=== PATIENT | female | born 1980 | race Caucasian/White ===

== ENCOUNTER → 2018-03-04 09:02 | Outpatient (CLI) | payer OTHER, SELFPAY | LOC: PSN 09:04 | PROVIDERS: Family Provider Internal Medicine; PCP Internal Medicine; Visit Provider Internal Medicine | DX: R00.2 Palpitations (principal) | CPT/HCPCS: 93225; 93226 ==

== ENCOUNTER 2018-11-04 05:36 | Day surgery (SDC) | payer OTHER, SELFPAY ==
[2018-10-30 17:32] LABS: Partial Thromboplast Time 29.8 Seconds (24.1-36.2); Prothrombin Time (Protime)PT. 12.6 SECONDS (11.7-14.9)
[2018-10-30 17:40] LABS: Hematocrit 40.5 % (37-47); Hemoglobin 13.9 g/dl (12.0-15.0); Mean Corp Hgb Conc 34.3 g/gl (32-36); Mean Corpuscular Volume 90.2 fL (81-99); Mean Platelet Vol. 10.2 fl (6.2-12.0); Platelet Count 330 K/mm3 (150-450); RBC Distribution Width CV 12.1 % (11.6-14.6); RBC Distribution Width SD 39.2 fl (35.1-43.9); Red Blood Count 4.49 M/mm3 (4.2-5.4); White Blood Count 7.8 K/mm3 (4.4-11.0)
[2018-10-30 17:43] LABS: Scan Indicated on CBC? Y/N NO
[2018-10-30 17:59] LABS: Creatinine, Serum 0.67 mg/dL (0.55-1.02); EST Glomerular Filtration Rate 104 mL/min (>60); Est Glom Filt Rate - Afr Amer 125 mL/min (>60)
--- NOTE | 2018-10-31 10:25 | HP.PCM_ITS ---
History and Physical Date of Admission: 11/04/18 Surgical History and Physical Trista Ring, a 38 year old female 4 1 2 0 5, presents for Robotic Assisted Vaginal Hysterectomy/ BS/ USO on November 04, 2018 at 7:30. -- PCP Bleeding; Pelvic Pain after Ablation -- Irregular Spotting Hx of Ablation which began Ablation 2013 or 2014. Trista claims it started suddenly and has been present several months. It occurs intermittantly. It is located in the lower abdomen. Trista characterizes the quality aching, irregular spotting. Trista characterizes the quality bright red bleeding. Severity is moderate and very concerned. Associated signs and symptoms are dyspareunia, bleeding after IC. Additional comments are: U/S shows no fibroids; suggestive of adenomyosis. MEDICATIONS HISTORY: Patient is also takin. No Meds ALLERGIES: No Known Allergies Infections - Chicken pox Illnesses - no serious past illnesses Accidents - None Hospitalizations - see surgery Review of Systems: GENERAL - Denies fever, or chills SKIN - Denies skin changes EYES - Denies visual changes EARS - Denies difficulty hearing NOSE - Denies nasal congestion or bleeding MOUTH - Denies sore throat or difficulty swallowing NECK - Denies pain or swelling RESPIRATORY - Denies shortness of breath or wheezing CARDIOVASCULAR - Denies palpitations or chest pain GASTROINTESTINAL - Denies nausea, vomiting, diarrhea, constipation GENITOURINARY - Denies dysuria, frequency of urination, incontinence of urine MUSCULOSKELETAL - Denies joint or muscle pain NEUROLOGICAL - Denies localized numbness or weakness PSYCHIATRIC - Denies depression or anxiety ENDOCRINE - Denies heat or cold intolerance, weight loss or gain HEMATO-IMMUNOLOGIC - Denies excesive bleeding with cuts SOCIAL HISTORY: Alcohol Use - socially Smoking - Never Diet - no special diet Lifestyle - moderate stress lifestyle and Exercise - active Seat Belt Use - always Employer - [employer] 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 1996 [place] Teeth Removed ; Dr. Lomeli - 2. D and C, 2009 ; - 3. 05/29/2012 ; - 4. 2014 Ablation ; Dr. Vazquez - PHYSICAL EXAM BP- 122/64 Sitting, Right arm, regular cuff Weight- 146 lbs Height- 64.5 inch BMI: 24.73 CONSTITUTIONAL - NAD, well nourished, and well developed SKIN - No rash, lesions, or ulcers HEENT - Normocephalic, PERRLA, EOMI NECK - No nodes, no nuchal rigidity and thyroid normal size and texture LYMPH NODES - Palpation of lymph nodes in neck and groins within normal limits LUNGS - CTA x2 without wheezes, crackles or rales CARDIAC - Regular rate and rhythm without rubs, murmurs, or gallops ABDOMEN - Without hepatosplenomegaly, distention, masses, rebound, or guarding; normal bowel sounds; no hernias EXTREMITIES - No edema or calf tenderness NEUROLOGICAL - Cranial nerves II-XII grossly intact PSYCHIATRIC - A and O to time, place, person, mood and affect External Genitial Vagina - non-tender without lesions Urethra/Urethral Meatus - non-tender Bladder - non-tender Vagina - vaginal chaudhary are pink and moist without loss of rugae and no evidence of atropy Cervix - without cervical motion tenderness and has normal size and features without evident lesions and friable Uterus - enlarged uterus 8 wks, wt 125-150 g, boggy and Cervix high in vagina which would make [facility] best option for removal of uterus if necessary Adnexa - clear without massess or tenderness and some tenderness over left adnexa ASSESSMENT/PLAN: 1. Abnormal Uterine Bleeding, Unspec and Postcoital Bleeding Pelvic pain and bleeding s/p ablation. Discussed options for treatment including expectant management, OCPs, or RAVH/BS/USO. Desires proceeding with [facility] surgery. Discussed RBAs.
[2018-11-04] VITALS (17 sets, daily range): BP systolic 84–102; BP diastolic 43–63; PULSE 76–112; RESP 12–18; TEMP 36.2–37.8; O2SAT 94–100; BMI 25.2
--- NOTE | 2018-11-04 | HYST_PTH ---
PATIENT: TABITHA BROOKS LOC[place] [facility] [place][id number] AGE/SX: 38/F ROOM: RE11/04/[address]: Dr. Los Quiles MD : 1980 BED: DIS: 11/05/2018 SPEC #: [id number] RECD: 11/04/18 13:27 STATUS: GLO FIONA #: [id number] BULMARO: 11/04/18 00:[address]: Los Quiles DEPT: SURGICAL PATHOLOGY RECD BY: Tyson Otero ENTERED: 11/04/18 13:27 SP TYPE: HYSTERECT OTHR DR: Dr. Sapna Daigle DO Tissues: Uterus, NOS Procedures: Surgery Specimen Level V HEADER OPERATION: Laparoscopic robotic assisted vaginal hysterectomy, bilateral salpingectomy PRE-OP DIAGNOSIS: Abnormal uterine bleeding; unspecified and postcoital bleeding TISSUE SUBMITTED: Uterus, bilateral fallopian tubes, ovary MICROSCOPIC DIAGNOSIS Uterus, bilateral fallopian tubes and left ovary, vaginal hysterectomy, bilateral salpingectomy and left oophorectomy: Cervix - chronic inflammation and squamous metaplasia. Endometrium - focal fibrosis and fibrin deposition consistent with status post endometrial ablation. Myometrium - focal superficial adenomyosis. Bilateral fallopian tubes - no pathologic diagnosis. Left ovary - mesothelial inclusion cysts with focal calcifications. Left paratubal cyst. SJ:win 11/05/18 MICROSCOPIC DESCRIPTION Slides are reviewed. GROSS DESCRIPTION Received in fixative is one container labeled with the patient's name and designated uterus. The specimen consists of a uterus with attached cervix, attached right fallopian tube, attached left fallopian tube and left ovary. The right ovary is not present. The uterus with cervix measures 9 x 6 x 5 cm and weighs 93 gm. The ectocervix is unremarkable. The cervical os is oval in contour. The endocervical canal measures 2.5 cm in length. The elongated endometrial cavity measures 3.5 x 2 cm. The reddish-medeiros endometrium measures up to 0.1 cm in thickness. The myometrium measures 2.8 cm in average thickness and is free of mass lesions. The right and left fallopian tubes are similar in appearance with an average length of 6.5 cm and maximal diameter of 0.5 cm. The fimbriated ends have a normal villous appearance. The left ovary is pink-white and crinkled and measures 3.5 x 1.5 x 1.2 cm. Serial sections reveal a blood-filled cyst measuring 0.5 cm in greatest dimension. The soft tissue adjacent to the left fallopian tube contains a smooth glistening cyst containing clear fluid. The cyst measures 3 x 2 cm. The cyst may represent a paratubal cyst. The external surface of the cyst is inked. The inner cyst wall lining is smooth and glistening. No papillary projections or excrescences are identified. Fleet Assistant sections are submitted in ten cassettes as follows: 1 - anterior cervix, 2 - posterior cervix, 3 & 4 - anterior uterine wall, 5 & 6 - posterior uterine wall, 7 - right fallopian tube, 8 - left fallopian tube, 9 - left ovary, 10 - left adnexal cyst. / AM:win 11/04/18 TC:5 CPT: 18807
[2018-11-04 06:08] LABS: Internal QC Validated? YES +Cl - CLEAR BKGD; Pregnancy, Urine Negative Negative
--- NOTE | 2018-11-04 07:38 | PCM.OPRPT ---
Report of Operation Date of Procedure: 11/04/18 Pre-Operative Diagnosis: Pelvic Pain, Postmenopausal Bleeding Status Post Ablation Post-Operative Diagnosis: Pelvic Pain, Postmenopausal Bleeding Status Post Ablation Surgery/Procedure Performed:: Robotic Assisted Vaginal Hysterectomy, Left Salpingo-Oophorectomy, Right Salpingectomy Description of Surgical Findings:: 8 cm uterus with normal appearing fallopian tubes and ovaries; 1-2 cm left paratubal cyst. oral surgery technician: Melony Solis Type of Anesthesia:: General - Endotracheal Anesthesiologist: Rafi Carrera Specimen's removed: Uterus and bilateral tubes and left ovary. Drains: Baires to straight drain Estimated Blood Loss (mL): Minimal Fluids Replaced: Crystalloid Description of Procedure: Surgeon: Los Quiles MD, FACOG Indication: This is a 38 year old patient who has been having problems with pelvic pain and postcoital bleeding. Patient had a prior endometrial ablation. Other conservative measures have not been helpful. The patient has been counseled regarding the risks, benefits and alternatives of this procedure including the possibility of bleeding, infection, and injury to surrounding structures such as bowel bladder and all questions were answered. She understands that if BSO is needed that she will need to be on HRT for an indefinite period of time. She also understands the possible need for laparotomy should this procedure not be possible to execute via robotic surgery. Procedure: Pt taken to the operating room where after induction of general anesthesia the patient was prepped and draped in the usual sterile fashion and placed on a non-slip Huggy-u-vac device. Trendendelenburg test was satisfactory. Bladder was drained of urine with a Baires catheter which was left in place. Anterior cervix grasped and cervix was dilated to about 3-4 mm. Uterus sounded to 10 cms. 0-Vicryl suture was placed at the 3:00 and 9:00 position of the cervix. A extra-large V-care device was then placed in the uterus to allow uterine manipulation and attention was turned to the laparoscopic portion of the procedure. Ropivocaine 0.5% was injected approximately 3 cm superior to the umbilicus and an 8 mm robotic camera port was introduced directly with intraperitoneal placement confirmed with insufflation. 8 mm robotic side ports were introduced under direct visualization approximately 10 cm lateral and 2 cm inferior to the umbilical port. A 5 mm left upper quadrant port was introduced and airseal insufflation with CO2 was started. The above findings were noted. The V care device balloon was noted to be just outside the fundus of the uterus but good manipulation was possible so this was left in place. Robot was docked without difficulty and attention turned to the robotic portion of the procedure. Approximately 23 cc of Ropivicaine was used. Bilateral infundibulocal ligaments/mesosalpinx were ligated with 35 amaral bipolar coagulation to the level of the round ligament. The posterior aspect of the cervix was identified and then opened for about 1 cm using 25 watt monopolar cautery identifying the V-care device which had been placed vaginally. Bladder flap was opened and divided to the level of the round ligaments using monopolar cautery. There were noted to be some adhesions between the cervix and bladder from prior section. Progressive bites were then ligated on each side of the cervix with 35 amaral bipolar cautery to the uterine arteries. The anterior vaginal mucosa was then entered and cervix circumscribed with monopolar cautery. Uterus and attached right ovary and bilateral tubes were then removed through the vagina. Vaginal cuff was closed first with 0-Vicryl Dc stitches placed at each angle followed by closure of the mid-cuff with 0-Monocryl V-lock suture in two layers. Pelvis was copiously irrigated with saline and the right and left ureter were noted to peristalse. Robot was undocked and trocars were removed with as much gas as possible. Incisions were closed with 4-0 Monocryl subcuticular sutures and incisions covered with steri-strips and opsite dressing. The patient tolerated the procedure well and was taken to the recovery room in satisfactory condition. Sponge, instruments and needle counts were all correct. There were no apparent complications of the surgery. Cefotan 2 gms IV was given prior to the procedure. Specimen to Pathology: Uterus and bilateral tubes and left ovary. Grafts/Implants Used: None - Complications None - Admit VTE Documentation VTE Present on Admission: Yes VTE Mechan Device Prophylaxis: SCD's VTE Pharm Prophylaxis ordered?: Yes
--- NOTE | 2018-11-04 07:43 | DCINST_ITS ---
Discharge Diet: No Restrictions Discharge Activity: Return to Normal Activity, May Not Drive - while taking narcotic pain medications., May Shower, May Take a Tub Bath May resume sexual activity in: 6-8 weeks Call your doctor if your incision/area has: Continuous Slow Oozing, Sudden Inc reased Bleeding, Increased Pain/ Swelling, Increased Redness, Foul Smelling Discharge Call your doctor if you observe: Fever of 101 or Higher, Inability to urinate, Inability to have a bowel movement, Using more than one pad per hour Allergies/Adverse Reactions: Allergies No Known Allergies Allergy (Verified 10/28/18 13:02) Medications to take at Discharge Docusate Sodium [Colace] 100 mg PO BID PRN PRN #60 cap 11/04/18 Oxycodone [Oxyir] 5 mg PO Q6H PRN PRN 7 Days #20 tab 11/04/18 The following prescriptions were given: Oxycodone [Oxyir] 5 mg PO Q6H PRN PRN 7 Days #20 tab PRN Reason: Severe Pain (6-05/01) Docusate Sodium [Colace] 100 mg PO BID PRN PRN #60 cap PRN Reason: Constipation Primary Care Physician: Sapna Daigle DO [Primary Care Provider] - Test Results: Test results from this visit will be discussed in further detail at your follow- up appointment, if applicable. Please Follow Up With: Los Quiles MD When: 2-3 weeks
[2018-11-04] MEDS: Ropivacaine 0.5% 30 ML Vial (08:14)
--- NOTE | 2018-11-04 11:50 | NURSING ---
patient drowsy but awakens and converses easily. given ice chips, no further needs
[2018-11-04] MEDS: Dextrose 5%-Lactated Ringers 1,000 ML 150 ML IV ×2 (12:13→18:48)
[2018-11-04] MEDS: Ketorolac 30 MG/ML Syringe IV ×3 (12:13→23:47)
--- NOTE | 2018-11-04 15:02 | CPS ---
attempted SMI with pt. Pt groggy and falling off to sleep during SMI instruction.
[2018-11-04] MEDS: Acetaminophen 500 MG Tablet 1000 MG PO (15:23)
[2018-11-04] MEDS: oxyCODONE 5 MG Tablet PO (15:25)
[2018-11-04] MEDS: Enoxaparin 30 MG/0.3 ML Syringe SC (17:34)
[2018-11-05 04:49] VITALS: BP 89/59; PULSE 87; RESP 16; TEMP 36.8; O2SAT 99
[2018-11-05] MEDS: Acetaminophen 500 MG Tablet 1000 MG PO (05:00)
[2018-11-05] MEDS: Ketorolac 30 MG/ML Syringe IV (05:56)
[2018-11-05 06:33] LABS: Hematocrit 31.5 % (37-47); Hemoglobin 10.6 g/dl (12.0-15.0); Mean Corp Hgb Conc 33.7 g/gl (32-36); Mean Corpuscular Hgb 31.2 pg (27.0-32.0); Mean Corpuscular Volume 92.6 fL (81-99); Mean Platelet Vol. 10.2 fl (6.2-12.0); Platelet Count 181 K/mm3 (150-450); RBC Distribution Width CV 12.6 % (11.6-14.6); RBC Distribution Width SD 42.8 fl (35.1-43.9); White Blood Count 8.8 K/mm3 (4.4-11.0)
[2018-11-05 06:37] LABS: Scan Indicated on CBC? Y/N NO
--- NOTE | 2018-11-05 06:40 | PCM.PN.OB ---
Subjective: Patient without complaints. Tolerating diet well. Baires catheter out. Denies flatus. Minimal vaginal bleeding. - Physical Exam Vital Signs Temp Pulse Resp BP Pulse Ox 98.2 F 87 16 89/59 L 99 11/05/18 04:49 11/05/18 04:49 11/05/18 04:49 11/05/18 04:49 11/05/18 04:49 Oxygen Delivery Method Room Air Weight: 147 lb 0.773 oz Body Mass Index (BMI) 25.2 Intake and Output for Last 24 Hours 11/03/18 11/04/18 11/05/18 23:59 23:59 23:59 Intake Total 3429 / 3429 500 / 500 Output Total 850 / 850 1475 / 1475 Balance 2579 / 2579 -975 / -975 Laboratory Tests Past 24 Hrs 11/05/18 11/05/18 06:02 06:02 WBC 8.8 RBC 3.40 L Hgb 10.6 L Hct 31.5 L MCV 92.6 MCH 31.2 MCHC 33.7 RDW 12.6 RDW Differential 42.8 Plt Count 181 MPV 10.2 Creatinine Pending Est GFR (MDRD) Af Amer Pending Est GFR (MDRD) Non-Af Pending Wounds are clean, dry, intact. Good urine output. Hemoglobin okay. Creatinine pending. Medical Necessity - Tobacco Use Smoking Status: Never smoker Tobacco Use: Non-smoker Assessment/Plan Doing well postoperative day #1 status post robotic assisted vaginal hysterectomy left salpingo-oophorectomy and right salpingectomy. Will release to home later today.
[2018-11-05 07:03] LABS: Creatinine, Serum 0.73 mg/dL (0.55-1.02); EST Glomerular Filtration Rate 94 mL/min (>60); Est Glom Filt Rate - Afr Amer 113 mL/min (>60); Estimated Creatinine Clearance 88.46 ml/min
[2018-11-05 08:00] VITALS: O2SAT 98
[2018-11-05 08:59] VITALS: BP 100/67; PULSE 79; RESP 14; TEMP 36.9; O2SAT 100
== END 2018-11-05 10:34 | disposition home or self-care (01) ==
LOC: SDC 05:38 → AC 05:38 → MS3 08:07
PROVIDERS: Anesthesiology; Family Provider Internal Medicine; PCP Internal Medicine; Referring Provider Obstetrics & Gynecology; Visit Provider Obstetrics & Gynecology
PROC: 0UT90ZZ Resection of Uterus, Open Approach (ICD-10-PCS; CPT 58552; principal; 2018-11-04 07:10)
DX: N87.9 Dysplasia of cervix uteri, unspecified (principal); N80.0 Endometriosis of uterus; N83.292 Other ovarian cyst, left side; N83.8 Other noninflammatory disorders of ovary, fallopian tube and broad ligament
CPT/HCPCS: 00840; 58552; 36415; 81025; 82565; 85027; 85610; 85730; 86850; 86900; 88307; J7120

== ENCOUNTER → 2020-08-23 14:06 | Outpatient (CLI) | payer OTHER, SELFPAY ==
[2018-11-04 11:56] VITALS: BMI 25.2
--- NOTE | 2020-08-23 14:09 | BI_ITS ---
MAMMOGRAPHY - BILATERAL SCREENING REASON FOR EXAM: Female, 40 years old. Routine annual screening examination. PERTINENT HISTORY: Mother with breast cancer. Grandmother with breast cancer. Aunts with breast cancer. TECHNIQUE: Digital bilateral breast shauna (3D mammographic acquisition) in the CC and MLO projections. 2-D mediolateral oblique (MLO) and craniocaudad (CC) views of both breasts were obtained. CAD: Full Field Digital Mammography with Computer Added Detection was performed. COMPARISON: Comparison is made with prior examination dated 12/13/2016. FINDINGS: Breast Composition: The breasts are heterogeneously dense, which may obscure small masses. There are no dominant masses or suspicious calcifications. No other significant abnormalities are identified. There has been no significant change since the prior study. BI/SCRN MAMM (CAD)W/SHAUNA BILAT IMPRESSION: Stable bilateral screening mammogram. Yearly follow-up mammogram recommended. (A) ASSESSMENT CATEGORY: BIRADS Category 1: Negative. A letter regarding these results will be sent to the patient by the facility within 30 days. Approximately 10% of breast cancers are not detected by mammography. A normal mammogram should not delay biopsy of a clinically suspicious abnormality. [id number] Electronically Signed: Raji East MD at 15:28 EST , Service support ,
== END ==
PROVIDERS: PCP Internal Medicine; Referring Provider Obstetrics & Gynecology; Visit Provider Obstetrics & Gynecology
DX: Z12.31 Encounter for screening mammogram for malignant neoplasm of breast (principal)
CPT/HCPCS: 77063; 77067

== ENCOUNTER → 2020-12-31 11:06 | Outpatient (CLI) | payer OTHER, SELFPAY ==
[2018-11-04 11:56] VITALS: BMI 25.2
[2020-12-31 13:02] LABS: Vitamin B12 700 pg/mL (211-911)
[2020-12-31 13:11] LABS: AST(SGOT) 14 U/L (15-37); Alanine Aminotransfer ALT/SGPT 22 U/L (13-56); Cholesterol 221 mg/dL (200); High Density Lipoprotein 61 mg/dL; Triglycerides 88 mg/dL; Very Low Density Lipoprotein 18 mg/dL (5-40)
[2021-01-06 03:06] LABS: LDL, Direct 120295 144 mg/dL (0-99); Testosterone, % Free 2.12 % (0.50-2.80); Testosterone, Free 0.36 ng/dL (0.10-0.85)
[2021-01-06 14:19] LABS: Androstenedione 121 ng/dL (41-262); Sex Hormone-binding Globulin 74.6 nmol/L (24.6-122.0); Testosterone, Total 17 ng/dL (4-50); Zinc, Plasma or Serum 76 ug/dL (44-115)
== END ==
LOC: MTLAB 11:07
PROVIDERS: PCP Internal Medicine; Referring Provider Dermatology; Visit Provider Dermatology
DX: L64.8 Other androgenic alopecia (principal); Z79.899 Other long term (current) drug therapy
CPT/HCPCS: 36415; 80061; 82157; 82607; 82627; 82746; 83721; 84270; 84402; 84403; 84450; 84460; 84630; 82626

== ENCOUNTER → 2021-03-18 09:40 | Outpatient (CLI) | payer OTHER, SELFPAY ==
[2021-03-18 12:35] LABS: AST(SGOT) 16 U/L (15-37); Alanine Aminotransfer ALT/SGPT 25 U/L (13-56); Cholesterol 255 mg/dL (200); High Density Lipoprotein 53 mg/dL; Triglycerides 113 mg/dL; Very Low Density Lipoprotein 23 mg/dL (5-40)
[2021-03-19 10:22] LABS: LDL, Direct 120295 182 mg/dL (0-99)
== END ==
LOC: MTLAB 09:41
PROVIDERS: PCP Internal Medicine; Referring Provider Dermatology; Visit Provider Dermatology
DX: Z79.899 Other long term (current) drug therapy (principal)
CPT/HCPCS: 36415; 80061; 83721; 84450; 84460

== ENCOUNTER 2024-06-23 12:30 | Outpatient (RCR) | payer OTHER, SELFPAY ==
--- NOTE | 2024-05-12 10:58 | HP.PTEVAL_ITS ---
Patient's Visit Information Visit Information Visit Information: TABITHA BROOKS is a 44 year old F referred to Physical Therapy by BREANN XIE with a diagnosis of R lateral epicondylitis s/p surgery. Date of Evaluation: 05/12/24 Physical Therapist: Naseem Miles, DPT, OCS, CSCS Visit Plan Frequency: 2-3x /Week Duration: 4-6 Weeks Plan: 2-3x/week for 4-6 1. desensiatzation massage and forearm extensor STM, stretch R wrist exdtensor, strength eccentric wrist ext to HEP, general R UE strength to HEP, progress to gym upper half [id number] to I as tolerated. May use ice massage afer adn MH dur ing session, can use IASTM at incision and R forearm. Consider neck massage and stretching in future once arm is better.Can use paraffin IE: Instruct HEP of desensitization massage 1 min, forearm massage 2 min, wrist extensor stretch 30 5x, use MH and ice and wrist circels all with HO Subjective Subjective: R tennis elbow surgery 03/23/24 due to chronic tennis elbow and bone spur shaved off the elbow. Its been 6 weeks. H/O stenosis in cervical spine and seeing Doctor for cortisone since 2019. Has seen neurosurgeon and concensus is no surgery for neck. Needed relief adn got tennis elbow surgery. Now thinks the elbow pain was partially due to neck. Now getting shooting pain iin R elbow at times. Has no strength and cannot open a jar. So9re in R elbow still. No tingling, mostly 3/10 here and there with use. None at rest. Gets 5/10 if bumped in R point of elbow near bone spur shaving. No tingling or numbness. Sleep is interrupted due to neck pain. Wants to focus on elbow. 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 Uses ice alot.Pulling laundry out of washer is painful on elbow. Basic ADLS are all getting done. prior to surgery was hard to pull leggings up but can now. No exercises for elbow, no regulaar exercises. Wants to do weight training if she can and CV. May join a gym. Has horses and otherwise is a mom and grandma. MS adn HS kidgustavo lopez. Pain R elbow: Pain Intensity (Out of 10): 0 Pain Intensity Range: 0 and 4 Objective Objective: Walks into PT I with good balance, transfers chair and bed I. cervica aROM 50 rotations with contralateral stiffness, 17 B SB R tighter than L, 40 excxtension feeling tight. retraction no problem, flexion just some tightness. No reprodcution of symptoms outside of tightness. scapular AROM WFL and symmetrical. R elbow incision healed well with palpable scarring and max tender, mod tender into R forearm. elbow and wrist ROM WFL but painful to stretch wrist extensors R. pronation and supination are full. reflexes 2/3 bi and tri Sensation WNL B UE to gross light touch. Tenderness also in triceps and UT B into scalenes and lev scap R>L - c/s compression test. strength R UE weak with shoulder elevation with scap compensation, wrist extension 3+ R vs 4 L. tri and bi are 4 R and 4+ L. thumb ext 4 B. Balance/Special Test Scores Quick DASH Score: 43.1800 Goals Goal 1:: Pain with contraction of R wrist muscle abolished as is tenderness in elbow Goal Time Frame: 4-6 Weeks Goal 2:: Patient feel R elbow adn forearm pain 1/10 at worst adn 80% better Goal Time Frame: 4-6 Weeks Goal 3:: I appropriate home management including R UE adn general upper half gym program. Goal Time Frame: 4-6 Weeks Goal 4:: quickdash 15 or better Goal Time Frame: 4-6 Weeks Goal 5:: open jar of sauce without increased pain Goal Time Frame: 4-6 Weeks Rehabilitation Potential Physical Therapy Diagnosis: tenderness and pain and tightness and weakness R UE limiting comfortable funciton Rehabilitation Potential: Good Anticipated Interventions Patient/Client Instruction: Educate patient on: Condition and Plan of Care For the Purpose of:: To decrease pain, To decrease swelling/inflammation, To improve nutrient delivery to tissue, To improve muscle performance and motor function and To increase tolerance to activity/condition/position Therapeutic Exercise to Include: Strength training, Postural training, Flexibilty training, Passive ROM and Active ROM For the Purpose of:: To decrease pain, To increase ROM, To improve nutrient delivery to tissue, To improve muscle performance and motor function, To improve ability to perform ADL's and To increase tolerance to activity/condition/position Manual Therapy Techniques to Include: Petrissage, Mobilization, Passive ROM and Soft tissue mobilization For the Purpose of:: To decrease pain, To improve nutrient delivery to tissue and To increase oxygenation perfusion Cryotherapy (ice pack, ice massage): Yes Thermo therapy (hot pack): Yes Paraffin bath: Yes For the Purpose of:: To decrease swelling/inflammation and To improve nutrient delivery to tissue Text: Thank you for the opportunity to evaluate your patient. For Medicare and Medicare HMO plans, please review the plan of care and approve it. It will need to be FAXED BACK to us at [phone] for Medicare purposes. For Medicare only, by signing this I certify the plan of care. Please let me know if there are questions or concerns regarding this plan of care. Physician Signature: Date:
--- NOTE | 2024-05-30 15:39 | HP.PTREVAL_ITS ---
Re-Evaluation Intro: BREANN XIE, It has been my pleasure to treat TABITHA BROOKS over the last 5 visits for R lateral epicondylitis s/p surgery. Please see the progress note below for an update on the physical therapy plan of care! Subjective Subjective: Pt stated she is having some discomfort with supination and pronation. Her pain level varies from 2 to 4/10. Objective Objective/Function: Pt completed program with no increase in pain, noted slight decrease her pain. Flexion and extension is less painful. She has been completing her HEP. Plan Plan Plan: 2-3x/week for 4-6 1. desensiatzation massage and forearm extensor STM, stretch R wrist exdtensor, strength eccentric wrist ext to HEP, general R UE strength to HEP, progress to gym upper half [id number] to I as tolerated. May use ice massage afer adn MH during session, can use IASTM at incision and R forearm. Consider neck massage and stretching in future once arm is better.Can use paraffin IE: Instruct HEP of desensitization massage 1 min, forearm massage 2 min, wrist extensor stretch 30 5x, use MH and ice and wrist circels all with HO Balance/Gait/Functional tests Balance/Special Test Scores Quick DASH Score: 43.1800 Goals Goals Goal 1:: Pain with contraction of R wrist muscle abolished as is tenderness in elbow Goal Time Frame: 4-6 Weeks Goal Progress: Goal Met Goal 2:: Patient feel R elbow adn forearm pain 1/10 at worst adn 80% better Goal Time Frame: 4-6 Weeks Goal Progress: Progressing Goal 3:: I appropriate home management including R UE adn general upper half gym program. Goal Time Frame: 4-6 Weeks Goal Progress: Progressing Goal 4:: quickdash 15 or better Goal Time Frame: 4-6 Weeks Goal 5:: open jar of sauce without increased pain Goal Time Frame: 4-6 Weeks Goal 6:: neck pain 75% better and ROM rotation 55 and extension 50 without pain. Goal Time Frame: 2-4 Weeks Goal Progress: NEW GOAL Anticipated Interventions Anticipated Interventions Patient/Client Instruction: Educate patient on: Condition and Plan of Care For the Purpose of:: To decrease pain, To decrease swelling/inflammation, To improve nutrient delivery to tissue, To improve muscle performance and motor function and To increase tolerance to activity/condition/position Therapeutic Exercise to Include: Strength training, Postural training, F lexibilty training, Passive ROM and Active ROM For the Purpose of:: To decrease pain, To increase ROM, To improve nutrient delivery to tissue, To improve muscle performance and motor function, To improve ability to perform ADL's and To increase tolerance to activity/condition/position Manual Therapy Techniques to Include: Petrissage, Mobilization, Passive ROM and Soft tissue mobilization For the Purpose of:: To decrease pain, To improve nutrient delivery to tissue and To increase oxygenation perfusion Cryotherapy (ice pack, ice massage): Yes Thermo therapy (hot pack): Yes Paraffin bath: Yes For the Purpose of:: To decrease swelling/inflammation and To improve nutrient delivery to tissue Re-Evaluation Ending Re-evaluation ending: Please do not hesitate to contact me at [phone] by phone or if you have questions or concerns regarding this new plan of care! Sincerely, Naseem Miles, DPT, OCS, CSCS
--- NOTE | 2024-09-23 14:19 | HP.PTDCNRP_ITS ---
Patient Information Patient Information: TABITHA BROOKS was seen in my office for initial evaluation on 05/12/24. The following Plan of Care was established for this patient: POC Established Initial Frequency: 2-3x /Week Initial Duration: 4-6 Weeks Anticipated Interventions Patient/Client Instruction: Educate patient on: Condition and Plan of Care For the Purpose of:: To decrease pain, To decrease swelling/inflammation, To improve nutrient delivery to tissue, To improve muscle performance and motor function and To increase tolerance to activity/condition/position Therapeutic Exercise to Include: Strength training, Postural training, Flexibilty training, Passive ROM and Active ROM For the Purpose of:: To decrease pain, To increase ROM, To improve nutrient delivery to tissue, To improve muscle performance and motor function, To improve ability to perform ADL's and To increase tolerance to activity/condition/posit ion Manual Therapy Techniques to Include: Petrissage, Mobilization, Passive ROM and Soft tissue mobilization For the Purpose of:: To decrease pain, To improve nutrient delivery to tissue and To increase oxygenation perfusion Cryotherapy (ice pack, ice massage): Yes Thermo therapy (hot pack): Yes Paraffin bath: Yes For the Purpose of:: To decrease swelling/inflammation and To improve nutrient delivery to tissue Last Seen Last Seen: This patient was last seen in our office 06/23/24. Pertinent comments regarding their Physical therapy will appear below: Pt seen 10 visits of POC and was slowly improving at least 25%. She cancelled or no showed for remaining 4 visits. At this point, it has lorraine over 2 months and I will discontinue from my care. At this point I will be discontinuing this patient from physical therapy. I would be happy to see this patient again in the future if found appropriate by the physician. Thank you! Naseem Miles, DPT, OCS, CSCS Balance/Gait/Functional tests Balance/Special Test Scores Quick DASH Score: 43.1800
== END 2024-06-23 19:00 | disposition home or self-care (01) ==
LOC: PT 12:30
PROVIDERS: PCP Internal Medicine
DX: M77.11 Lateral epicondylitis, right elbow (principal)
CPT/HCPCS: 97035; 97110; 97140; 97161; 97530